=== PATIENT | male | born 1940 | race Caucasian/White ===

== ENCOUNTER 2019-11-16 20:26 | Observation (INO) | payer MEDICARE, BC ==
[~2019-11-16] VITALS: Ht 180.3 cm; Wt 102.2 kg
[2019-11-16 21:23] LABS: GFR 53 ML/MIN (>=60 (CALC)); GFR FOR AFR.AMER. > 60 ML/MIN (>=60 (CALC))
[2019-11-16 21:28] LABS: HEMATOCRIT 42.3 % (39.0-50.0); HEMOGLOBIN 14.5 g/dl (14.0-18.0); IMMATURE GRANULOCYTES 0.5 % (0.0-5.0); MEAN CELL VOLUME 95.5 fL CALC (80.0-100.0); MEAN CORPUSCULAR HGB 32.7 pG CALC (26.0-32.0); MEAN CORPUSCULAR HGB CONC 34.3 g/L CALC (32.0-36.0); NEUT# 4.83 thou/uL (1.82-7.42); RED BLOOD COUNT 4.43 mill/uL (4.70-6.10)
[2019-11-16 21:45] LABS: ALBUMIN 4.3 g/dL (3.2-5.0); ALKALINE PHOSPHATASE 68 u/l (38-126); ANION GAP 14 (6-22 (CALC)); BILIRUBIN, TOTAL 0.7 mg/dL (0.0-1.4); BUN 24 mg/dL (8-23); BUN/CREATININE RATIO 19 (12-20 (CALC)); CHLORIDE 106 mmol/l (95-108); CREATININE 1.3 mg/dL (0.7-1.3); ETHYL ALCOHOL 0 mg/dl (0-30); GFR 53 ML/MIN (>=60 (CALC)); GFR FOR AFR.AMER. > 60 ML/MIN (>=60 (CALC)); POTASSIUM 3.9 mmol/l (3.5-5.1); SGOT/AST 23 u/l (19-48); SODIUM 138 mmol/l (137-146); TOTAL PROTEIN 7.6 g/dL (6.3-8.2)
[2019-11-16 21:49] LABS: CARBON DIOXIDE 22 mmol/l (22-30)
[2019-11-16 21:53] LABS: PROTHROMBIN TIME 10.4 SECONDS (9.0-12.5)
[2019-11-16] MEDS ORDERED: ASPIRINCHW 81MG PO (22:05)
[2019-11-16] MEDS ORDERED: METOPROL TAR25 MG PO (22:05)
[2019-11-16] MEDS ORDERED: GABAPENTIN100 MG PO (22:06)
[2019-11-16] MEDS ORDERED: SPIRONOLACT25 MG PO (22:06)
[2019-11-16] MEDS ORDERED: SIMVASTATIN40 MG PO (22:06)
[2019-11-16] MEDS ORDERED: PLAVIX75 MG PO (22:07)
[2019-11-16 23:18] VITALS: BP 150/68
[2019-11-17 05:40] LABS: HEMATOCRIT 38.8 % (39.0-50.0); HEMOGLOBIN 13.4 g/dl (14.0-18.0); IMMATURE GRANULOCYTES 0.6 % (0.0-5.0); MEAN CELL VOLUME 95.6 fL CALC (80.0-100.0); MEAN CORPUSCULAR HGB CONC 34.5 g/L CALC (32.0-36.0); NEUT# 4.61 thou/uL (1.82-7.42); RED BLOOD COUNT 4.06 mill/uL (4.70-6.10)
[2019-11-17 05:49] LABS: CHOLESTEROL HDL RATIO 3.7 (<4.4 (CALC))
[2019-11-17 05:58] LABS: ALKALINE PHOSPHATASE 52 u/l (38-126); ANION GAP 12 (6-22 (CALC)); BILIRUBIN, TOTAL 0.7 mg/dL (0.0-1.4); BUN 20 mg/dL (8-23); BUN/CREATININE RATIO 20 (12-20 (CALC)); CARBON DIOXIDE 21 mmol/l (22-30); CHLORIDE 108 mmol/l (95-108); GFR > 60 ML/MIN (>=60 (CALC)); GFR FOR AFR.AMER. > 60 ML/MIN (>=60 (CALC)); SGOT/AST 18 u/l (19-48); SODIUM 138 mmol/l (137-146)
[2019-11-17 06:17] LABS: ALBUMIN 3.4 g/dL (3.2-5.0)
[2019-11-17 08:09] LABS: URINE BILIRUBIN - DIPSTICK NEGATIVE (NEGATIVE); URINE BLOOD DIPSTICK NEGATIVE (NEGATIVE); URINE COLOR YELLOW; URINE GLUCOSE - DIPSTICK NEGATIVE (NEGATIVE); URINE KETONE NEGATIVE (NEGATIVE); URINE LEUK ESTERASE NEGATIVE (NEGATIVE); URINE NITRITE - DIPSTICK NEGATIVE (Negative); URINE PH 5.5 (4.5-8.0); URINE PROTEIN - DIPSTICK NEGATIVE (NEG-TRACE); URINE SPECIFIC GRAVITY >=1.030; URINE UROBILINOGEN - DIPSTICK 0.2 E.U./dL (0.2)
[2019-11-17 08:13] LABS: BARBITURATES NEGATIVE (NEGATIVE); COCAINE NEGATIVE (NEGATIVE); METHADONE NEGATIVE (NEGATIVE); TETRAHYDROCANNABIONOL NEGATIVE (NEGATIVE); TRICYLIC ANTIDEPRESSANTS NEGATIVE (NEGATIVE)
[2019-11-17 08:14] LABS: OXCYCODONE NEGATIVE (NEGATIVE)
[2019-11-17 08:49] VITALS: BP 120/61
[2019-11-17 15:47] VITALS: BP 102/52
[2019-11-17 19:11] VITALS: BP 109/55
[2019-11-18 00:21] VITALS: BP 104/61
[2019-11-18 04:00] VITALS: BP 122/68
[2019-11-18 08:00] VITALS: BP 110/66
[2019-11-18 11:20] VITALS: BP 105/58
[2019-11-18 11:25] VITALS: BP 97/64; BP 99/54
[2019-11-18 11:30] VITALS: BP 104/62
== END 2019-11-18 15:40 | disposition home or self-care (01) ==
LOC: ED 20:26 → ED-I 21:02 → ED 21:02 → ED-I 21:02 → ED 21:28 → MS2 21:29
PROVIDERS: ADMIT Internal Medicine; ATTEND Internal Medicine
DX: G45.9 Transient cerebral ischemic attack, unspecified (principal); I10 Essential (primary) hypertension; I25.10 Atherosclerotic heart disease of native coronary artery without angina pectoris; E78.5 Hyperlipidemia, unspecified; G62.9 Polyneuropathy, unspecified; G72.9 Myopathy, unspecified; Z87.891 Personal history of nicotine dependence; Z95.5 Presence of coronary angioplasty implant and graft; Z86.73 Personal history of transient ischemic attack (TIA), and cerebral infarction without residual deficits; Z79.02 Long term (current) use of antithrombotics/antiplatelets; Z79.82 Long term (current) use of aspirin
CPT/HCPCS: G0378; J2060